=== PATIENT | female | born 1995 | race Two or more races ===

== ENCOUNTER 2016-08-14 23:59 | Emergency (ER) | payer OTHER ==
--- NOTE | ~2016-08-14 | CR285 ---
[facility] A Service of [facility] RADIOLOGY TEXT RESULTS PATIENT: GEETHA SINGH LOCATION: CFTX : [birth year] UNIT #: [id number] AGE: [address]: JOSELITO DE ANDA APRN SEX: F ORDER DR: [id number] [facility] [address] [place], [place] [address] [id number] E MR#: [id number] Acc #: [id number] NAME: GEETHA SINGH : 1995 SEX: F STUDY DATE/TIME: 08/15/2016 1:34 UNIT: [facility] ROOM: STUDY DESCRIPTION: CR Wrist W Navicular Min 3 Lt Attending Physician: Joselito De Anda Aprn Ordering Physician: Joselito De Anda Aprn Primary Care Physician: Primary Care Physician No MEDICAL IMAGING REPORT This report is preliminary unless electronic signature is present EXAM Left wrist series, 08/15/2016 HISTORY 21-year-old female in the ED complaining of left wrist pain and bruising after injury playing volleyball tonight. TECHNIQUE Three-view left wrist series including additional scaphoid view. FINDINGS The examination is negative. No fracture, dislocation or other osseous abnormality is demonstrated. IMPRESSION Negative left wrist series. Dictated by... Leonard Colon M.D. THIS IS AN ELECTRONICALLY VERIFIED REPORT Leonard Colon M.D. at 08/15/2016 6:01 AM DAMON/soraida TD: 08/15/2016 04:48 JOB #: [id number] MEDICAL IMAGING REPORT Page 1 of 1 COPY
[~2016-08-14 23:59] MED LIST: A/T/S 2% GEL30 GM OT; ANAPROX DS550 M1 PO; ASPIRIN PO; AZITHROMYCIN1 GM PO; CALCIUM 500 + D1 TAB PO; CELLCEPT PO; FAMOTIDINE PO; FERROUS SULFATE PO; LISINOPRIL PO; MYCOPHENOLATE PO; PHENERGAN W/CO120 ML PO; PLAQUENIL200 MG PO; PREDNISONE PO; RONDEC-DM ORAL30 ML PO; TYLENOL #3 PO; ZANTAC300 MG PO; ZITHROMAX PO
== END 2016-08-15 03:15 | disposition home or self-care (01) ==
LOC: CFTX 23:59
DX: S60.212A Contusion of left wrist, initial encounter (principal); W22.8XXA Striking against or struck by other objects, initial encounter; Y93.68 Activity, volleyball (beach) (court); Y92.218 Other school as the place of occurrence of the external cause
CPT/HCPCS: 29125; 73110; 99283